=== PATIENT | female | born 1970 | race Two or more races ===

== ENCOUNTER → 2016-09-20 | Outpatient (CLI) | payer BC ==
[2016-09-20 08:29] LABS: BASOPHILS % 0.9 % (0.0-2.0); EOSINOPHILS % 1.6 % (0.0-5.0); HEMATOCRIT. 37.3 % (36.0-48.0); HEMOGLOBIN. 12.6 g/dL (12.0-16.0); LYMPHOCYTES % 23.3 % (20.0-50.0); MEAN CORPUSCULAR HEMOGLOBIN 30.7 pg (28.0-32.0); MEAN CORPUSCULAR HGB CONC 33.8 g/dL (31.0-37.0); MEAN PLATELET VOLUME 7.1 fl (7.4-10.4); MONOCYTES % 7.8 % (2.0-8.0); NEUTROPHILS % 66.4 % (40.0-76.0); PLATELET 300 x1000/uL (130-400); RED CELL DISTRIBUTION WIDTH 13.2 % (11.6-14.6); WHITE BLOOD COUNT 5.2 x1000/uL (4.5-11.0)
[2016-09-20 08:59] LABS: ALANINE AMINOTRANSFERASE 27 IU/L (13-61); ALBUMIN 3.7 g/dL (3.4-5.0); ANION GAP 11; CALCIUM 8.8 mg/dL (8.5-10.1); CARBON DIOXIDE 29 mEq/L (21-32); CHLORIDE 105 mEq/L (98-107); HDL CHOLESTEROL 55 mg/dL (40-59); INDEX HEMOLYSI 1 (1-3); INDEX ICTERIC 1 (1-4); INDEX LIPEMIC 1 (1-3); IRON 82 ug/dL (50-175); LDL CHOLESTEROL 112 mg/dL (5-100); T4 FREE 0.96 ng/dL (0.76-1.46); TOTAL IRON BINDING CAPACITY 360 ug/dL (250-450); TRIGLYCERIDE 111 mg/dL (0-150); UREA NITROGEN BLOOD 12 mg/dL (7-21); eGFR > 60 mL/min (>60)
[2016-09-20 09:03] LABS: T3 FREE 2.42 pg/ml (2.18-3.98)
[2016-09-20 09:18] LABS: INDEX HEMOLYSI 1 (1-3)
[2016-09-20 09:35] LABS: VITAMIN B12 SERUM 1430 pg/mL (211-911)
[2016-09-20 09:36] LABS: FOLIC ACID (FOLATE) SERUM > 20.00 ng/mL (>5.38)
[2016-09-20 12:40] LABS: FERRITIN 35 ng/mL (10-291)
== END | disposition home or self-care (01) ==
LOC: MAMMO 07:57
PROVIDERS: ATTEND Internal Medicine Geriatric Medicine
DX: Z12.31 Encounter for screening mammogram for malignant neoplasm of breast (principal)
CPT/HCPCS: 36415; 80053; 80061; 82306; 82607; 82728; 82746; 83540; 83550; 84439; 84443; 84481; 85025; 86592; G0202

== ENCOUNTER 2017-02-24 13:11 | Inpatient (IN) | payer BC ==
[~2017-02-24] VITALS: Ht 165.1 cm; Wt 65.8 kg
[2017-02-24] MEDS ORDERED: LEVO25PO MC (13:34)
[2017-02-24] MEDS ORDERED: HYDROCODONE/ACETAMINOPHEN 5/325MG TABLET PO ONE (14:30)
[2017-02-24] MEDS ORDERED: ONDANSETRON 4MG ODT PO ONE (14:30)
[2017-02-24 15:45] LABS: BASOPHILS % 0.3 % (0.0-2.0); EOSINOPHILS % 0.1 % (0.0-5.0); HEMATOCRIT. 36.4 % (36.0-48.0); HEMOGLOBIN. 12.6 g/dL (12.0-16.0); LYMPHOCYTES % 13.7 % (20.0-50.0); MEAN CORPUSCULAR HEMOGLOBIN 31.3 pg (28.0-32.0); MEAN CORPUSCULAR VOLUME 90.3 fL (81.0-99.0); MEAN PLATELET VOLUME 7.4 fl (7.4-10.4); MONOCYTES % 6.3 % (2.0-8.0); NEUTROPHILS % 79.6 % (40.0-76.0); PLATELET 317 x1000/uL (130-400); RED BLOOD CELL COUNT 4.03 mill/uL (4.2-5.4); RED CELL DISTRIBUTION WIDTH 13.3 % (11.6-14.6)
[2017-02-24 15:48] LABS: CHLORIDE 105 mEq/L (98-107)
[2017-02-24 15:49] LABS: PARTIAL THROMBOPLASTIN TIME 25.9 sec (23.4-31.0); PROTHROMBIN TIME 10.2 sec (9.4-11.6)
[2017-02-24 15:53] LABS: CARBON DIOXIDE 24 mEq/L (21-32)
[2017-02-24 16:00] LABS: HCG SCREEN NEGATIVE
[2017-02-24] MEDS ORDERED: RASA1TAB PO (17:16)
[2017-02-24 17:31] VITALS: BP 125/78
[2017-02-24] MEDS ORDERED: CARB1TAB9 PO (17:40)
[2017-02-24] MEDS ORDERED: HYDROMORPHONE HCL/PF 2MG/ML CPJ IV PRN (18:00)
[2017-02-24] MEDS ORDERED: ACETAMINOPHEN 325MG TABLET PO PRN (18:00)
[2017-02-24] MEDS ORDERED: ENOXAPARIN 40MG/0.4ML SYR SUBCUT SCH (18:00)
[2017-02-24] MEDS: HYDROCODONE/ACETAMINOPHEN 5/325MG TABLET PO PRN (18:09)
[2017-02-24 20:00] VITALS: BP 127/79
[2017-02-24] MEDS: CARBIDOPA/LEVODOPA 25/100MG TABLET PO SCH (21:27)
[2017-02-24] MEDS: DIPHENHYDRAMINE 50MG/ML VIAL IV PRN (21:27)
[2017-02-25] VITALS: BP 121/67
[2017-02-25 04:00] VITALS: BP 132/72
[2017-02-25] MEDS: MORPHINE SULFATE 4 MG/ML CPJ (NOT FOR IM USE) IV PRN ×3 (05:03→13:44)
[2017-02-25] MEDS: CARBIDOPA/LEVODOPA 25/100MG TABLET PO SCH ×3 (05:42→22:02)
[2017-02-25 06:51] LABS: BASOPHILS % 0.4 % (0.0-2.0); EOSINOPHILS % 0.4 % (0.0-5.0); HEMATOCRIT. 36.4 % (36.0-48.0); HEMOGLOBIN. 12.5 g/dL (12.0-16.0); LYMPHOCYTES % 20.2 % (20.0-50.0); MEAN CORPUSCULAR HEMOGLOBIN 31.2 pg (28.0-32.0); MEAN PLATELET VOLUME 7.5 fl (7.4-10.4); MONOCYTES % 7.9 % (2.0-8.0); NEUTROPHILS % 71.1 % (40.0-76.0); PLATELET 279 x1000/uL (130-400); RED CELL DISTRIBUTION WIDTH 13.4 % (11.6-14.6)
[2017-02-25 08:00] VITALS: BP 131/65
[2017-02-25 12:00] VITALS: BP 125/76
[2017-02-25 12:23] LABS: CARBON DIOXIDE 25 mEq/L (21-32); CHLORIDE 104 mEq/L (98-107)
[2017-02-25] MEDS ORDERED: ERGOCALCIFEROL 50000UNITS CAPSULE PO SCH (13:45)
[2017-02-25] MEDS ORDERED: DOCUSATE SODIUM 250MG CAPSULE PO NR (13:45)
[2017-02-25 16:00] VITALS: BP 139/85
[2017-02-25] MEDS: DEXT IV SCH (16:00)
[2017-02-25] MEDS: POTASSIUM PHOS M BASIC D BASIC IV SCH (16:00)
[2017-02-25] MEDS: NACL IV SCH (16:00)
[2017-02-25] MEDS: HYDROCODONE/ACETAMINOPHEN 5/325MG TABLET PO PRN (16:10)
[2017-02-25 20:00] VITALS: BP 118/73
[2017-02-25] MEDS ORDERED: LACTULOSE 20G/30ML UDC PO PRN (21:00)
[2017-02-26] VITALS: BP 122/67
[2017-02-26 04:00] VITALS: BP 141/76
[2017-02-26] MEDS: CARBIDOPA/LEVODOPA 25/100MG TABLET PO SCH ×3 (05:08→22:08)
[2017-02-26] MEDS ORDERED: DEXT 5%/0.45% NACL KCL 20MEQ/L 1,000 ML IV SCH (06:00)
[2017-02-26 06:45] LABS: BASOPHILS % 0.4 % (0.0-2.0); EOSINOPHILS % 0.8 % (0.0-5.0); HEMATOCRIT. 37.1 % (36.0-48.0); HEMOGLOBIN. 12.8 g/dL (12.0-16.0); LYMPHOCYTES % 19.3 % (20.0-50.0); MEAN CORPUSCULAR HEMOGLOBIN 31.4 pg (28.0-32.0); MEAN CORPUSCULAR VOLUME 91.4 fL (81.0-99.0); MEAN PLATELET VOLUME 7.3 fl (7.4-10.4); MONOCYTES % 7.6 % (2.0-8.0); NEUTROPHILS % 71.9 % (40.0-76.0); PLATELET 284 x1000/uL (130-400); RED BLOOD CELL COUNT 4.06 mill/uL (4.2-5.4); RED CELL DISTRIBUTION WIDTH 13.1 % (11.6-14.6)
[2017-02-26 07:44] LABS: CARBON DIOXIDE 27 mEq/L (21-32); CHLORIDE 105 mEq/L (98-107)
[2017-02-26 08:00] VITALS: BP 130/79
[2017-02-26] MEDS: MORPHINE SULFATE 4 MG/ML CPJ (NOT FOR IM USE) IV PRN (08:56)
[2017-02-26] MEDS: POTASSIUM PHOS M BASIC D BASIC IV SCH ×3 (08:57→16:12)
[2017-02-26] MEDS: DEXT IV SCH ×3 (08:57→16:12)
[2017-02-26] MEDS: NACL IV SCH ×3 (08:57→16:12)
[2017-02-26] MEDS: CALCIUM CARBONATE 1250MG TABLET (500MG ELEMENTAL CALCIUM) PO SCH (08:59)
[2017-02-26] MEDS ORDERED: DOCUSATE SODIUM 250MG CAPSULE PO SCH (09:00)
[2017-02-26 12:00] VITALS: BP 131/74
[2017-02-26] MEDS ORDERED: MORPHINE SULFATE/PF 1MG/ML 10ML AMP ONE (13:52)
[2017-02-26] MEDS ORDERED: NORMAL SALINE 0.9% 10 ML SYR ONE (13:53)
[2017-02-26] MEDS ORDERED: BUPIVACAINE HCL/PF 0.25% (2.5MG/ML) 10ML ONE (13:53)
[2017-02-26] MEDS ORDERED: BACITRACIN 50,000 UNITS/VIAL ONE (13:53)
[2017-02-26] MEDS ORDERED: DEXAMETHASONE 4MG/ML 1ML VIAL ONE ×2 (14:32→14:34)
[2017-02-26] MEDS ORDERED: MIDAZOLAM HCL 2 MG/2 ML VIAL ONE (14:35)
[2017-02-26] MEDS ORDERED: FENTANYL CITRATE/PF 50MCG/ML 2ML VIAL ONE (14:35)
[2017-02-26] MEDS ORDERED: HYDROMORPHONE HCL/PF 2MG/ML (OR) ONE (14:35)
[2017-02-26] MEDS ORDERED: ONDANSETRON HCL 4MG/2ML VIAL IV PRN (15:00)
[2017-02-26] MEDS ORDERED: LABETALOL HCL 20MG/4ML CARPUJECT IV PRN (15:00)
[2017-02-26] MEDS ORDERED: HYDROMORPHONE HCL/PF 2MG/ML CPJ IV PRN (15:00)
[2017-02-26] MEDS ORDERED: MEPERIDINE HCL/PF 25MG/ML CPJ IV PRN (15:00)
[2017-02-26] MEDS ORDERED: BACITRACIN ZINC 15GM TUBE TOP ONE (15:28)
[2017-02-26] MEDS ORDERED: SKIN ADHESIVE 0.7 GM EA TOP ONE (16:37)
[2017-02-26] MEDS ORDERED: MAGNESIUM HYDROXIDE 400MG/5ML 30ML UDC PO PRN (17:30)
[2017-02-26] MEDS ORDERED: HYDROCODONE/ACETAMINOPHEN 5/325MG TABLET PO PRN ×2 (17:30)
[2017-02-26] MEDS ORDERED: ACETAMINOPHEN 325MG TABLET PO PRN (17:30)
[2017-02-26] MEDS ORDERED: HYDROMORPHONE PCA 10MG/50ML IV PRN (17:39)
[2017-02-26] MEDS ORDERED: DIPHENHYDRAMINE INJ IV PRN (17:39)
[2017-02-26] MEDS ORDERED: NALOXONE INJ IV PRN ×3 (17:45→18:45)
[2017-02-26] MEDS ORDERED: ONDANSETRON INJ IV PRN (17:45)
[2017-02-26] MEDS: DIPHENHYDRAMINE 50MG/ML VIAL IV PRN (18:26)
[2017-02-26] MEDS ORDERED: MORPHINE PCA 50MG/50ML IV PRN (18:45)
[2017-02-26 20:00] VITALS: BP 138/75
[2017-02-26] MEDS: CEFAZOLIN 2,000 MG in DEXT 5% WATER 100 ML IV SCH (21:10)
[2017-02-26] MEDS: DOCUSATE SODIUM 100MG CAPSULE PO SCH (22:08)
[2017-02-27] VITALS: BP 154/83
[2017-02-27 04:00] VITALS: BP 137/86
[2017-02-27] MEDS: CEFAZOLIN 2,000 MG in DEXT 5% WATER 100 ML IV SCH (04:40)
[2017-02-27] MEDS: POTASSIUM PHOS M BASIC D BASIC IV SCH ×3 (04:43→18:05)
[2017-02-27] MEDS: DEXT IV SCH ×3 (04:43→18:05)
[2017-02-27] MEDS: NACL IV SCH ×3 (04:43→18:05)
[2017-02-27] MEDS: CARBIDOPA/LEVODOPA 25/100MG TABLET PO SCH ×3 (06:55→21:25)
[2017-02-27 08:00] VITALS: BP 138/78
[2017-02-27] MEDS: ENOXAPARIN 40MG/0.4ML SYR SUBCUT SCH (08:55)
[2017-02-27] MEDS: CALCIUM CARBONATE 1250MG TABLET (500MG ELEMENTAL CALCIUM) PO SCH (08:55)
[2017-02-27] MEDS: DOCUSATE SODIUM 100MG CAPSULE PO SCH (08:55)
[2017-02-27 12:00] VITALS: BP 129/70
[2017-02-27 16:00] VITALS: BP 118/71
[2017-02-27 20:00] VITALS: BP 125/78
[2017-02-28] VITALS: BP 121/78
[2017-02-28] MEDS: NACL IV SCH ×2 (02:06→08:52)
[2017-02-28] MEDS: POTASSIUM PHOS M BASIC D BASIC IV SCH ×2 (02:06→08:52)
[2017-02-28] MEDS: DEXT IV SCH ×2 (02:06→08:52)
[2017-02-28 04:00] VITALS: BP 136/77
[2017-02-28] MEDS: CARBIDOPA/LEVODOPA 25/100MG TABLET PO SCH (06:30)
[2017-02-28 08:00] VITALS: BP 125/74
[2017-02-28] MEDS: ENOXAPARIN 40MG/0.4ML SYR SUBCUT SCH (08:53)
[2017-02-28] MEDS: DOCUSATE SODIUM 100MG CAPSULE PO SCH (08:53)
[2017-02-28] MEDS: CALCIUM CARBONATE 1250MG TABLET (500MG ELEMENTAL CALCIUM) PO SCH (08:54)
[2017-02-28 09:24] LABS: BASOPHILS % 0.5 % (0.0-2.0); EOSINOPHILS % 0.8 % (0.0-5.0); HEMATOCRIT. 36.7 % (36.0-48.0); HEMOGLOBIN. 12.4 g/dL (12.0-16.0); LYMPHOCYTES % 17.4 % (20.0-50.0); MEAN CORPUSCULAR HEMOGLOBIN 31.1 pg (28.0-32.0); MEAN CORPUSCULAR VOLUME 92.1 fL (81.0-99.0); MEAN PLATELET VOLUME 7.2 fl (7.4-10.4); MONOCYTES % 6.3 % (2.0-8.0); PLATELET 287 x1000/uL (130-400); RED BLOOD CELL COUNT 3.98 mill/uL (4.2-5.4); RED CELL DISTRIBUTION WIDTH 13.3 % (11.6-14.6)
[2017-02-28] MEDS: MORPHINE SULFATE 4 MG/ML CPJ (NOT FOR IM USE) IV PRN (09:42)
[2017-02-28 12:00] VITALS: BP 128/78
[2017-02-28 12:53] VITALS: BP 128/78
== END 2017-02-28 14:00 | disposition home or self-care (01) | DRG 493 ==
LOC: ER 13:11 → EDBEDREQ 15:23 → ENRESERV 15:29 → 6EST 16:07 → EDBEDREQ 16:28 → ER 17:11
PROVIDERS: ADMIT Internal Medicine Geriatric Medicine; ATTEND Internal Medicine Geriatric Medicine
PROC: 0QSH04Z Reposition Left Tibia with Internal Fixation Device, Open Approach (ICD-10-PCS; principal; 2017-02-26 14:30)
DX: S82.852A Displaced trimalleolar fracture of left lower leg, initial encounter for closed fracture (principal); M80.872A Other osteoporosis with current pathological fracture, left ankle and foot, initial encounter for fracture; G20 Parkinson's disease; W01.0XXA Fall on same level from slipping, tripping and stumbling without subsequent striking against object, initial encounter; R73.9 Hyperglycemia, unspecified; E87.6 Hypokalemia; R26.9 Unspecified abnormalities of gait and mobility; Y93.89 Activity, other specified; Y92.89 Other specified places as the place of occurrence of the external cause; Y99.8 Other external cause status
CPT/HCPCS: 29515; 36415; 70450; 71010; 73610; 73630; 80048; 80053; 82652; 83036; 84703; 85025; 85610; 85730; 93005; 97116; 97161; 97164; 97166; 97535; 99285; A4216; C1713; J0690; J1100; J1170; J1200; J1650; J2250; J2270; J2274; J3010; J3490; J7030; J7060; Q0162; Q4051

== ENCOUNTER → 2017-03-15 | Outpatient (CLI) | payer BC ==
[~2017-03-15] MED LIST: CARB1TAB9 PO; LEVO25PO MC; RASA1TAB PO
== END | disposition home or self-care (01) ==
LOC: MAMMO 10:44
PROVIDERS: ATTEND Internal Medicine Geriatric Medicine
DX: M81.0 Age-related osteoporosis without current pathological fracture (principal); S82.892A Other fracture of left lower leg, initial encounter for closed fracture; X58.XXXA Exposure to other specified factors, initial encounter; Y93.89 Activity, other specified; Y92.89 Other specified places as the place of occurrence of the external cause; Y99.8 Other external cause status
CPT/HCPCS: 77080

== ENCOUNTER → 2017-07-19 | Outpatient (CLI) | payer BC ==
[2017-07-19 11:57] LABS: FOLIC ACID (FOLATE) SERUM >20 ng/mL ng/mL (>5.38); VITAMIN B12 SERUM 1111 pg/mL (211-911)
[2017-07-19 11:58] LABS: FERRITIN 29 ng/mL (10-291)
[2017-07-19 12:05] LABS: CHLORIDE 105 mEq/L (98-107)
[2017-07-19 12:18] LABS: HDL CHOLESTEROL 49 mg/dL (40-59); LDL CHOLESTEROL 112 mg/dL (5-100); TOTAL IRON BINDING CAPACITY 389 ug/dL (250-450)
== END | disposition home or self-care (01) ==
LOC: LAB 09:48
PROVIDERS: ATTEND Internal Medicine Geriatric Medicine
DX: Z00.01 Encounter for general adult medical examination with abnormal findings (principal); G20 Parkinson's disease; R79.89 Other specified abnormal findings of blood chemistry; Z79.899 Other long term (current) drug therapy
CPT/HCPCS: 36415; 80053; 80061; 82306; 82525; 82607; 82728; 82746; 83001; 83036; 83540; 83550; 83655; 84443; 86592

== ENCOUNTER → 2017-07-23 | Outpatient (CLI) | payer BC | END | disposition home or self-care (01) | LOC: MRI 08:38 | PROVIDERS: ATTEND Internal Medicine Geriatric Medicine | DX: G20 Parkinson's disease (principal); R42 Dizziness and giddiness | CPT/HCPCS: 70551 ==